=== PATIENT | male | born 1965 | race Caucasian/White ===

== ENCOUNTER → 2016-04-04 | Outpatient (CLI) | payer OTHER ==
[~2016-04-04] MED LIST: /BACL20TA OR; AMBI10TA; AMBI10TA OR; AMBIEN PO; AMIT25TA2; BACL10TA2; BACL10TA2 PO; BIOFLEX; CELE-19 PO; COLA100C2; COLA100C2 OR; EXCEDRINE MIGRAINE; EXCETAB OR; EXCETAB80 PO; FLECTOR PATCH; FLECTOR1.3 TD; GABA300T; HYDROCODONE; IMIT100T OR; IMIT50TA PO; LIDO5DIS EX; LISI10TA4; LISI10TA4 OR; LISI20TA PO; LUNE2TAB OR; LYRI150C; LYRI150C OR; LYRI200C; MAXA10TA17 PO; NEUR800T; NEUR800T OR; NORT10CA2; NORT10CA2 OR; OMEP20CA3 PO; OMEP20TA7 OR; PENN1.5S TOP; PENN1SOL2 TD; PENNSAID EXT; PERC5TAB8 PO; PREG50CA; PRIL20CA; RYZOLT; RYZOLT PO; SENN15TA2; SENO8.6T5 OR; SKEL800T5 OR; SKEL800T5 PO; SUMA100T2 PO; TIZA4CAP3 PO; TIZA4TAB PO; TRAZ50TA OR; VICO5TAB; VICO5TAB OR; VICODINES TAB OR; ZEST20TA4 PO; [UNRECOGNIZED DRUG - CODE]; [UNRECOGNIZED DRUG - OTHER] TOP; oxycontin PO; tps cream TOP
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
== END ==
LOC: M PAIN 14:40
PROVIDERS: ATTEND Anesthesiology
DX: M79.1 Myalgia (principal); M54.2 Cervicalgia; M51.16 Intervertebral disc disorders with radiculopathy, lumbar region; M51.17 Intervertebral disc disorders with radiculopathy, lumbosacral region; M46.1 Sacroiliitis, not elsewhere classified; Z79.891 Long term (current) use of opiate analgesic; Z88.8 Allergy status to other drugs, medicaments and biological substances

== ENCOUNTER → 2016-05-04 | Outpatient (CLI) | payer OTHER ==
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
== END ==
LOC: M PAIN 15:00
PROVIDERS: ATTEND Anesthesiology
DX: Z09 Encounter for follow-up examination after completed treatment for conditions other than malignant neoplasm (principal); G89.21 Chronic pain due to trauma; M79.1 Myalgia; M47.816 Spondylosis without myelopathy or radiculopathy, lumbar region; M47.817 Spondylosis without myelopathy or radiculopathy, lumbosacral region; M54.2 Cervicalgia; M51.16 Intervertebral disc disorders with radiculopathy, lumbar region; M51.17 Intervertebral disc disorders with radiculopathy, lumbosacral region; G43.909 Migraine, unspecified, not intractable, without status migrainosus; Z88.8 Allergy status to other drugs, medicaments and biological substances; Z79.891 Long term (current) use of opiate analgesic; Z79.899 Other long term (current) drug therapy

== ENCOUNTER → 2016-06-21 | Outpatient (CLI) | payer OTHER ==
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
== END ==
LOC: M PAIN 14:20
PROVIDERS: ATTEND Anesthesiology
DX: Z09 Encounter for follow-up examination after completed treatment for conditions other than malignant neoplasm (principal); G89.29 Other chronic pain; M79.1 Myalgia; M54.2 Cervicalgia; M47.816 Spondylosis without myelopathy or radiculopathy, lumbar region; M47.817 Spondylosis without myelopathy or radiculopathy, lumbosacral region; M51.16 Intervertebral disc disorders with radiculopathy, lumbar region; M51.17 Intervertebral disc disorders with radiculopathy, lumbosacral region; G43.909 Migraine, unspecified, not intractable, without status migrainosus; Z88.8 Allergy status to other drugs, medicaments and biological substances; Z79.891 Long term (current) use of opiate analgesic; Z79.899 Other long term (current) drug therapy

== ENCOUNTER → 2016-06-29 | Outpatient (CLI) | payer OTHER ==
[~2016-06-29] MED LIST changes: +BUPIVACAINE HCL 0.25% 10 ML VIAL As Ordered ONE; +BUPIVACAINE HCL 0.25% 30 ML VIAL As Ordered ONE; +TRIAMCINOLONE ACETONIDE SUSP 40 MG/ML VIAL (J3301) As Ordered ONE; +diazePAM 5 MG TAB As Ordered ONE; +oxyCODONE 5MG TAB As Ordered ONE
--- NOTE | 2016-07-08 23:12 | ECWPNPC ---
PATIENT NAME: JEROME MARIN : 1965 GENDER: MALE VISIT DATE: 06/29/2016 DISCHARGE DATE: 06/29/16 1115 VISIT LOCKED DATE TIME: PHYSICIAN: GEORGIE BEASLEY RESOURCE: GEORGIE BEASLEY REASON FOR APPOINTMENT 1. TPI NECK APPROVED W/C HISTORY OF PRESENT ILLNESS HISTORY OF PRESENT ILLNESS: PAIN THE PATIENT DESCRIBES THE PAIN... FALL RISK SCREENING: SCREENING :ONE FALL WITH INJURY IN THE PAST YEAR LEFT LEG GAVE OUT CURRENT MEDICATIONS TAKING ETODOLAC 400 MG TABLET 1 TABLET WITH FOOD ORALLY NEEDED TWICE A DAY FOR PAIN, NOTES: 06/30/15@0800 TAKING LYRICA 150 MG CAPSULE 1 CAPSULE ORALLY FOR PAIN TID MDD3, NOTES: 06/29/16@0800 TAKING NORTRIPTYLINE HCL 75 MG CAPSULE 1 CAPSULE AT BEDTIME ORALLY ONCE A DAY, NOTES: 06/28/16@2200 TAKING OXYCODONE-ACETAMINOPHEN 7.5-325 MG TABLET 1 ORALLY CODE D CHRONIC PAIN TWICE DAILY PRN FOR PAIN MDD2, NOTES: 06/29/16@0800 TAKING METHOCARBAMOL 750 MG TABLET 1 TABLET ORALLY TWICE DAILY, NOTES: 06/29/16@0800 TAKING DOC-Q-LACE 100 MG CAPSULE 1 CAPSULE NEEDED ORALLY ONCE A DAY, NOTES: 2 DAYS AGO NOT-TAKING OXYCONTIN 10 MG TABLET ER 12 HOUR ABUSE-DETERRENT 1 TABLET ORALLY ONCE DAILY MDD1 NOT-TAKING FLECTOR 1.3 % PATCH 1 PATCH TO SKIN TRANSDERMAL TWICE A DAY NEEDED TO LEFT UPPER BACK NOT-TAKING LIDODERM 5 % PATCH 1 PATCH TO INTACT SKIN REMOVE AFTER 12 HOURS EXTERNALLY ONCE A DAY, NOTES: NONE NOT-TAKING SUMATRIPTAN 100 MG TABLETS 1 CAP P.O. DIRECTED NOT-TAKING MEDICATED SKIN CREAM LOTION EXTERNALLY , NOTES: NONE NOT-TAKING LYRICA 100 MG CAPSULE 1 CAPSULE ORALLY TID, NOTES: 10-11-15 06 NOT-TAKING OMEPRAZOLE 20 MG CAPSULE DELAYED RELEASE 1 CAPSULE ORALLY ONCE A DAY DISCONTINUED CEPHALEXIN 500 MG TABLET 1 TABLET ORALLY THREE TIMES DAILY MEDICATION LIST REVIEWED AND RECONCILED WITH THE PATIENT PAST MEDICAL HISTORY LOW AND MID BACK PAIN MIGRAINE ALLERGIES MILNACIPRAN HCL: TACHYCARDIA, FLUSHING, AGITATION: ALLERGY SOCIAL HISTORY GENERAL: TOBACCO USE ARE YOU A:CURRENT SMOKER PATIENT COUNSELED ON THE DANGERS OF TOBACCO USE AND URGED TO QUIT:06/29/2016 ARE YOU INTERESTED IN QUITTING?THINKING ABOUT QUITTING COUNSELED THE PATIENT ON SMOKING CESSATION, EDUCATION [id number]/07/2017 PAIN CLINIC PFS, CLERGY, PUBLIC HEALTH REFERRALS CLERGY REFERRAL NEEDED?NO WAS THE PROVIDER NOTIFIED OF ANY PERTINENT INFO?NO PFS REFERRAL NEEDED?NO PUBLIC HEALTH REFERRAL NEEDED?NO PATIENT: ____. REVIEW OF SYSTEMS CONSTITUTIONAL: ANY CHANGE IN YOUR MEDICAL CONDITION? NO . CHILLS NO . FEVER NO . INFECTION: DO YOU HAVE NEW INFECTIONS? NO . DO YOU HAVE HISTORY OF MRSA? NO . MUSCULOSKELETAL: ANY NEW PATTERNS OF PAIN OR NUMBNESS? YES . GASTROENTEROLOGY: ANY NEW CHANGE IN BOWEL CONTROL? NO . GENITOURINARY: ANY NEW CHANGE IN BLADDER CONTROL? NO . IS THERE A CHANCE YOU COULD BE ? NO . HEMATOLOGY/LYMPH: DO YOU TAKE ANY BLOOD THINNERS? (FOR EXAMPLE- COUMADIN, PLAVIX, AGGRENOX, PLATEL, PRADAXA, OR XARELTO) NO . WHEN WAS YOUR LAST DOSE? DATE: TIME: . NEUROLOGY: HAVE YOU FALLEN IN THE PAST 6 MONTHS? NO . ANY NEW EXTREMITY NUMBNESS OR WEAKNESS? NO . CARDIOLOGY: DO YOU HAVE A PACEMAKER OR DEFIBRILLATOR? NO . RESPIRATORY: HAVE YOU BEEN SICK IN THE PAST WEEK? NO . FEVER NO . FLU LIKE SYMPTOMS? NO . COUGH NO . INTEGUMENTARY: DO YOU HAVE ANY RASHES OR OPEN SORES? NO . ALLERGIC/IMMUNO: ARE YOU ALLERGIC TO SHELLFISH OR IV DYE? NO . ANY NEW ALLERGIES? NO . PSYCHIATRIC: DO YOU HAVE THOUGHTS OF HURTING YOURSELF OR SOMEONE ELSE? NO . ARE YOU ABUSED, NEGLECTED, OR IN AN UNSAFE ENVIRONMENT? NO . ENDOCRINOLOGY: ARE YOU DIABETIC? NO . OTHER: DO YOU NEED ANY PRESCRIPTIONS? NO . IF YES, PLEASE LIST: ____ . ANY NEW PROBLEMS WITH YOUR MEDICATIONS? NO . WHEN DID YOU LAST EAT? ____0600 . WHEN DID YOU LAST DRINK? ____1200 . WHAT DID YOU LAST DRINK? ____WATER . NAME OF PERSON DRIVING YOU HOME? ____PATTY . DO YOU HAVE ANY OTHER QUESTIONS OR CONCERNS NO . REVIEWED BY: PROVIDER: . VITAL SIGNS WT 205.2 LBS, HT 68 IN, BMI 31.20 INDEX, BP 128/78 MM HG, HR 89 /MIN, RR 16 /MIN, TEMP 98.2 F, OXYGEN SAT % 99%, NA INITIALS SC 14:07, REVIEWED BY: VD. ASSESSMENTS MYALGIA - M79.1 (PRIMARY) PROCEDURES PN TRIGGER POINT INJECTION WITH STEROIDS PRE PROCEDURE DIAGNOSIS 1. MYALGIA 2. PAIN AT LEFT NECK AREA AND LEFT SHOULDER AREA POST PROCEDURE DIAGNOSIS 1. MYALGIA 2. PAIN AT LEFT NECK AREA AND LEFT SHOULDER AREA PROCEDURE TRIGGER POINT INJECTION AT LEFT NECK AREA AND LEFT SHOULDER AREA SURGEON DR. GEORGIE BEASLEY FURNITURE DUSTER NONE ANESTHESIA LOCAL PRE PROCEDURE NOTE THE PATIENT HAS A HISTORY OF CHRONIC PAIN AT THE LEFT NECK AREA AND LEFT SHOULDER AREA. I EVALUATE THE PATIENT AND REVIEWED THE CHART. THERE IS EVIDENCE OF BANDS OF TISSUE WITH RESTRICTION OF MOVEMENT AND PRESENCE OF TRIGGER POINT AT THE AFFECTED AREA. I WENT OVER THE RISKS, ALTERNATIVES, AND BENEFITS ASSOCIATED WITH THIS PROCEDURE. THE PATIENT WOULD LIKE TO PROCEED AND GIVE CONSENT TO PERFORMED THE PROCEDURE. THE PATIENT DENIES UNEXPLAINABLE WEIGHT LOSS, FEVER, CHILLS, OR NEW CHANGES IN URINARY OR BOWEL CONTROL DESCRIPTION OF PROCEDURE THE PATIENT WAS BROUGHT TO THE PROCEDURE ROOM AND PLACED IN THE SITTING POSITION. THE AREA WAS CLEANED WITH ALCOHOL. THE PROCEDURE WAS DONE USING ASEPTIC STERILE TECHNIQUE. I CHECKED LATERALITY AND THE LEVEL WHERE THE PROCEDURE WAS GOING TO BE PERFORMED WITH THE PATIENT AND THE SUPPORTING STAFF AT THE MOMENT OF THE TIME OUT IN THE PROCEDURE ROOM. USING A 25-GAUGE NEEDLE, TRIGGER POINTS WERE INJECTED AT THE LEFT NECK AREA AND LEFT SHOULDER AREA WITH A TOTAL OF 40 ML OF BUPIVACAINE 0.25% AND KENALOG 40 MG. THERE WAS NO EVIDENCE OF BLOOD, PARESTHESIA OR CEREBROSPINAL FLUID DURING THE PROCEDURE. THE PATIENT WAS SENT TO THE RECOVERY ROOM. THE PATIENT WAS MOVING THE EXTREMITIES AND DOING WELL. THERE WAS NO COMPLICATION DURING THE PROCEDURE POST PROCEDURE NOTE THE PATIENT WILL BE SEEN IN A FOLLOW UP IN THE NEXT FEW WEEKS. INSTRUCTIONS WERE GIVEN, QUESTIONS WERE ANSWERED, AND THE PATIENT EXPRESSED UNDERSTANDING AND AGREES WITH THE PLAN. I, ARNOLD GARCIA, DOCUMENTED THE ABOVE INFORMATION ACTING A SCRIBE FOR DR. BEASLEY. I HAVE REVIEWED THE ABOVE DOCUMENT, WRITTEN BY ARNOLD GARCIA SCRIBEden AND I VERIFY THAT IT IS ACCURATE. PN WORKMANS' COMP OPINION IN YOUR OPINION, WAS THE INCIDENT THAT THE PATIENT DESCRIBED THE COMPETENT MEDICAL CAUSE OF THIS INJURY/ILLNESS? YES ARE THE PATIENT'S COMPLAINTS CONSISTENT WITH HIS/HER HISTORY OF THE INJURY/ILLNESS? YES IS THE PATIENT'S HISTORY OF THE INJURY/ILLNESS CONSISTENT WITH YOUR OBJECTIVE FINDING? YES WHAT IS THE PERCENTAGE OF TEMPORARY IMPAIRMENT? MARKED = 75% IS THE PATIENT WORKING? NO DOCTOR ON SITE: GEORGIE GOODWIN MD PROCEDURE CODES 80555 INJ TRIGGER POINT 1/2 MUSCL DISPOSITION & COMMUNICATION FOLLOW UP 3 WEEKS ELECTRONICALLY SIGNED BY GEORGIE BEASLEY MD ON 07/08/2016 AT 05:48 PM EDT DISCLAIMER : THIS IS A VISIT SUMMARY EXTRACTED FROM THE [employer] CHART. IT IS NOT A COPY OF THE [employer] PROGRESS NOTE. ALIVIA
== END ==
LOC: M PAIN 14:00
PROVIDERS: ATTEND Anesthesiology
DX: G89.29 Other chronic pain (principal); M54.2 Cervicalgia; M25.512 Pain in left shoulder; M79.1 Myalgia; Z79.891 Long term (current) use of opiate analgesic; Z79.899 Other long term (current) drug therapy
CPT/HCPCS: 20552; J3301

== ENCOUNTER → 2016-07-18 | Outpatient (CLI) | payer OTHER ==
[~2016-07-18] MED LIST changes: -BUPIVACAINE HCL 0.25% 10 ML VIAL As Ordered ONE; -BUPIVACAINE HCL 0.25% 30 ML VIAL As Ordered ONE; -TRIAMCINOLONE ACETONIDE SUSP 40 MG/ML VIAL (J3301) As Ordered ONE; -diazePAM 5 MG TAB As Ordered ONE; -oxyCODONE 5MG TAB As Ordered ONE
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
== END ==
LOC: M PAIN 14:00
PROVIDERS: ATTEND Anesthesiology
DX: G89.29 Other chronic pain (principal); M51.16 Intervertebral disc disorders with radiculopathy, lumbar region; M51.17 Intervertebral disc disorders with radiculopathy, lumbosacral region; M47.816 Spondylosis without myelopathy or radiculopathy, lumbar region; M47.817 Spondylosis without myelopathy or radiculopathy, lumbosacral region; M79.1 Myalgia; Z88.8 Allergy status to other drugs, medicaments and biological substances; F17.200 Nicotine dependence, unspecified, uncomplicated; Z79.891 Long term (current) use of opiate analgesic; Z79.899 Other long term (current) drug therapy

== ENCOUNTER → 2016-08-07 | Outpatient (CLI) | payer OTHER ==
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
== END ==
LOC: M PAIN 13:40
PROVIDERS: ATTEND Anesthesiology
DX: G89.29 Other chronic pain (principal); M51.16 Intervertebral disc disorders with radiculopathy, lumbar region; M54.2 Cervicalgia; M25.561 Pain in right knee; M25.512 Pain in left shoulder; M79.1 Myalgia; G43.909 Migraine, unspecified, not intractable, without status migrainosus; F17.210 Nicotine dependence, cigarettes, uncomplicated; Z88.8 Allergy status to other drugs, medicaments and biological substances; Z79.891 Long term (current) use of opiate analgesic; Z79.899 Other long term (current) drug therapy

== ENCOUNTER → 2016-08-27 | Outpatient (CLI) | payer OTHER ==
[~2016-08-27] MED LIST changes: +ISOVUE-M 300 61% 15ML VIAL (Q9967) As Ordered ONE; +LIDOCAINE 1% SDV INJ 30 ML VIAL As Ordered ONE; +diazePAM 5 MG TAB As Ordered ONE; +methylPREDNISolone SUSP 40 MG/ML (DEPO-medrol) VIAL (J1030) As Ordered ONE; +oxyCODONE 5MG TAB As Ordered ONE
--- NOTE | 2016-08-27 13:53 | REP ---
Partial lumbar spine series: Three views. History: Lumbar epidural injection for pain. 11 seconds of fluoroscopy time is reported. Findings: A sequence of three fluoroscopic last image hold spot radiographs are presented documenting needle position associated with lumbar epidural injection procedure. Signed by Conner Baker MD 08/27/2016 04:41 P
--- NOTE | 2016-09-02 23:53 | ECWPNPC ---
PATIENT NAME: JEROME MARIN : 1965 GENDER: MALE VISIT DATE: 08/27/2016 DISCHARGE DATE: 08/27/16 1325 VISIT LOCKED DATE TIME: PHYSICIAN: GEORGIE BEASLEY RESOURCE: GEORGIE BEASLEY REASON FOR APPOINTMENT 1. EDYTA Hancock/Thi APPROVED L4-L5 HISTORY OF PRESENT ILLNESS HISTORY OF PRESENT ILLNESS: PAIN THE PATIENT DESCRIBES THE PAIN... FALL RISK SCREENING: SCREENING :NO FALLS IN THE PAST YEAR CURRENT MEDICATIONS TAKING DULOXETINE HCL 30 MG CAPSULE DELAYED RELEASE PARTICLES 1 CAPSULE ORALLY BID FOR PAIN, NOTES: COUPLE DAYS AGO TAKING NORTRIPTYLINE HCL 75 MG CAPSULE 1 CAPSULE AT BEDTIME ORALLY ONCE A DAY, NOTES: 2099 TAKING LYRICA 150 MG CAPSULE 1 CAPSULE ORALLY FOR PAIN TID MDD3, NOTES: 08-27-16799 TAKING ETODOLAC 400 MG TABLET 1 TABLET WITH FOOD ORALLY NEEDED TWICE A DAY FOR PAIN, NOTES: 08-27-16799 TAKING OXYCODONE-ACETAMINOPHEN 7.5-325 MG TABLET 1 ORALLY CODE D CHRONIC PAIN TWICE DAILY PRN FOR PAIN MDD2, NOTES: 08-27-16799 TAKING METHOCARBAMOL 750 MG TABLET 1 TABLET ORALLY TWICE DAILY NEEDED, NOTES: 08-27-16799 TAKING DOC-Q-LACE 100 MG CAPSULE 1 CAPSULE NEEDED ORALLY ONCE A DAY, NOTES: NONE RECENT TAKING FLECTOR 1.3 % PATCH 1 PATCH TO SKIN TRANSDERMAL TWICE A DAY NEEDED TO LEFT UPPER BACK, NOTES: 2 WEEKS AGO TAKING SUMATRIPTAN 100 MG TABLETS 1 CAP P.O. DIRECTED, NOTES: NONE RECENT TAKING OMEPRAZOLE 20 MG CAPSULE DELAYED RELEASE 1 CAPSULE ORALLY ONCE A DAY, NOTES: 08-26-16 PM NOT-TAKING OXYCONTIN 10 MG TABLET ER 12 HOUR ABUSE-DETERRENT 1 TABLET ORALLY ONCE DAILY MDD1 NOT-TAKING MEDICATED SKIN CREAM LOTION EXTERNALLY , NOTES: NONE DISCONTINUED LIDODERM 5 % PATCH 1 PATCH TO INTACT SKIN REMOVE AFTER 12 HOURS EXTERNALLY ONCE A DAY, NOTES: NONE DISCONTINUED LYRICA 100 MG CAPSULE 1 CAPSULE ORALLY TID, NOTES: 10-11-15 0600 MEDICATION LIST REVIEWED AND RECONCILED WITH THE PATIENT PAST MEDICAL HISTORY LOW AND MID BACK PAIN MIGRAINE ALLERGIES MILNACIPRAN HCL: TACHYCARDIA, FLUSHING, AGITATION: ALLERGY REVIEW OF SYSTEMS CONSTITUTIONAL: ANY CHANGE IN YOUR MEDICAL CONDITION? NO . CHILLS NO . FEVER NO . INFECTION: DO YOU HAVE NEW INFECTIONS? NO . DO YOU HAVE HISTORY OF MRSA? NO . MUSCULOSKELETAL: ANY NEW PATTERNS OF PAIN OR NUMBNESS? NO . GASTROENTEROLOGY: ANY NEW CHANGE IN BOWEL CONTROL? NO . GENITOURINARY: ANY NEW CHANGE IN BLADDER CONTROL? NO . IS THERE A CHANCE YOU COULD BE ? NO . HEMATOLOGY/LYMPH: DO YOU TAKE ANY BLOOD THINNERS? (FOR EXAMPLE- COUMADIN, PLAVIX, AGGRENOX, PLATEL, PRADAXA, OR XARELTO) NO . WHEN WAS YOUR LAST DOSE? DATE: TIME: . NEUROLOGY: HAVE YOU FALLEN IN THE PAST 6 MONTHS? YES . ANY NEW EXTREMITY NUMBNESS OR WEAKNESS? NO . CARDIOLOGY: DO YOU HAVE A PACEMAKER OR DEFIBRILLATOR? NO . RESPIRATORY: HAVE YOU BEEN SICK IN THE PAST WEEK? NO . FEVER NO . FLU LIKE SYMPTOMS? NO . COUGH NO . INTEGUMENTARY: DO YOU HAVE ANY RASHES OR OPEN SORES? NO . ALLERGIC/IMMUNO: ARE YOU ALLERGIC TO SHELLFISH OR IV DYE? NO . ANY NEW ALLERGIES? NO . PSYCHIATRIC: DO YOU HAVE THOUGHTS OF HURTING YOURSELF OR SOMEONE ELSE? NO . ARE YOU ABUSED, NEGLECTED, OR IN AN UNSAFE ENVIRONMENT? NO . ENDOCRINOLOGY: ARE YOU DIABETIC? NO . OTHER: DO YOU NEED ANY PRESCRIPTIONS? NO . IF YES, PLEASE LIST: ____ . ANY NEW PROBLEMS WITH YOUR MEDICATIONS? NO . WHEN DID YOU LAST EAT? 08-26-16 PM . WHEN DID YOU LAST DRINK? 08-27-16 0800 . WHAT DID YOU LAST DRINK? WATER . NAME OF PERSON DRIVING YOU HOME? SONALI . DO YOU HAVE ANY OTHER QUESTIONS OR CONCERNS NO . REVIEWED BY: PROVIDER: . VITAL SIGNS WT 208.8 LBS, HT 68 IN, BMI 31.74 INDEX, BP 118/79 MM HG, HR 91 /MIN, RR 16 /MIN, TEMP 97.0 F, OXYGEN SAT % 98%, NA INITIALS SC 11:14, REVIEWED BY: CM. ASSESSMENTS INTERVERTEBRAL DISC DISORDERS WITH RADICULOPATHY, LUMBAR REGION - M51.16 (PRIMARY) PROCEDURES PRE PROCEDURE DIAGNOSIS LUMBAR RADICULOPATHY, LUMBAR DISC DISORDER WITH RADICULOPATHY POST PROCEDURE DIAGNOSIS LUMBAR RADICULOPATHY , LUMBAR DISC DISORDER WITH RADICULOPATHY PROCEDURE L4-L5 LUMBAR EPIDURAL STEROID INJECTION UNDER FLUOROSCOPIC GUIDANCE SURGEON DR. GEORGIE BEASLEY SPORTS UMPIRE NONE ANESTHESIA LOCAL PRE PROCEDURE NOTE THE PATIENT HAS A HISTORY OF CHRONIC LOW BACK PAIN. I EVALUATE THE PATIENT AND REVIEWED THE CHART. I WENT OVER THE RISKS, ALTERNATIVES, AND BENEFITS ASSOCIATED WITH THIS PROCEDURE. THE PATIENT WOULD LIKE TO PROCEED AND GIVE CONSENT TO PERFORMED THE PROCEDURE. THE PATIENT DENIES UNEXPLAINABLE WEIGHT LOSS, FEVER, CHILLS, OR NEW CHANGES IN URINARY OR BOWEL CONTROL. DESCRIPTION OF PROCEDURE THE PATIENT WAS BROUGHT TO THE PROCEDURE ROOM AND PLACED IN THE PRONE POSITION. THE LUMBOSACRAL AREA WAS CLEANED WITH BETADINE SOLUTION AND DRAPED ASEPTICALLY. THE PROCEDURE WAS DONE UNDER STERILE CONDITIONS. I CHECKED LATERALITY AND THE LEVEL WHERE THE PROCEDURE WAS GOING TO BE PERFORMED WITH THE PATIENT AND THE SUPPORTING STAFF AT THE MOMENT OF THE TIME OUT IN THE PROCEDURE ROOM. UNDER FLUOROSCOPIC GUIDANCE, THE TARGET POINT WAS SELECTED AT THE INTERLAMINAR LEVEL OF L4-L5. LIDOCAINE WAS USED TO NUMB THE SKIN AND THE SUBCUTANEOUS TISSUE BELOW IT. EPIDURAL TUOHY NEEDLE, 17-GAUGE, WAS ADVANCED UNDER FLUOROSCOPIC GUIDANCE AND FOLLOWING PATIENT FEEDBACK UNTIL THE EPIDURAL SPACE WAS REACHED, 7 CM DEEP INTO THE SKIN BY THE LOSS OF RESISTANCE TECHNIQUE. ISOVUE M DYE 30%, 0.25 ML, WAS INJECTED SHOWING ADEQUATE SPREAD OF THE DYE. THEN, A SOLUTION OF 3 ML OF NORMAL SALINE WITH DEPO-MEDROL 60 MG WAS INJECTED SLOWLY FOLLOWING PATIENT FEEDBACK. THERE WAS NO EVIDENCE OF BLOOD, PARESTHESIA OR CEREBROSPINAL FLUID DURING THE PROCEDURE. THE PATIENT WAS SENT TO THE RECOVERY ROOM. THE PATIENT WAS MOVING THE EXTREMITIES AND DOING WELL. THERE WAS NO COMPLICATION DURING THE PROCEDURE. FLUOROSCOPY TIME WAS 11 SECONDS. POST PROCEDURE NOTE THE PATIENT WILL BE SEEN IN A FOLLOW UP IN THE NEXT FEW WEEKS. INSTRUCTIONS WERE GIVEN, QUESTIONS WERE ANSWERED, AND THE PATIENT EXPRESSED UNDERSTANDING AND AGREES WITH THE PLAN. I, ARNOLD GARCIA, DOCUMENTED THE ABOVE INFORMATION ACTING A SCRIBE FOR DR. BEASLEY. I HAVE REVIEWED THE ABOVE DOCUMENT, WRITTEN BY ARNOLD GARCIA SCRIBEden AND I VERIFY THAT IT IS ACCURATE PN WORKMANS' COMP OPINION IN YOUR OPINION, WAS THE INCIDENT THAT THE PATIENT DESCRIBED THE COMPETENT MEDICAL CAUSE OF THIS INJURY/ILLNESS? YES ARE THE PATIENT'S COMPLAINTS CONSISTENT WITH HIS/HER HISTORY OF THE INJURY/ILLNESS? YES IS THE PATIENT'S HISTORY OF THE INJURY/ILLNESS CONSISTENT WITH YOUR OBJECTIVE FINDING? YES WHAT IS THE PERCENTAGE OF TEMPORARY IMPAIRMENT? MARKED = 75% IS THE PATIENT WORKING? NO DOCTOR ON SITE: GEORGIE GOODWIN MD DIAGNOSTIC IMAGING [facility] FLUORO GUIDE SPINE INJECTION (PAIN)[id number] PROCEDURE CODES 14570 LUMBAR/SACRAL W/ IMAGING 6045F RADXPS IN END [id number] PXD DISPOSITION & COMMUNICATION FOLLOW UP 3 WEEKS ELECTRONICALLY SIGNED BY GEORGIE BEASLEY MD ON 09/02/2016 AT 07:33 PM EDT DISCLAIMER : THIS IS A VISIT SUMMARY EXTRACTED FROM THE [employer] CHART. IT IS NOT A COPY OF THE [employer] PROGRESS NOTE. MTDD
== END ==
LOC: M PAIN 11:00
PROVIDERS: ATTEND Anesthesiology
DX: G89.29 Other chronic pain (principal); M51.16 Intervertebral disc disorders with radiculopathy, lumbar region; G43.909 Migraine, unspecified, not intractable, without status migrainosus; Z88.8 Allergy status to other drugs, medicaments and biological substances; Z79.891 Long term (current) use of opiate analgesic; Z79.899 Other long term (current) drug therapy
CPT/HCPCS: 62323; J1030; Q9967

== ENCOUNTER → 2016-10-16 | Outpatient (CLI) | payer OTHER ==
[~2016-10-16] MED LIST changes: -CELE-19 PO; +CELE1CAP4 PO; -ISOVUE-M 300 61% 15ML VIAL (Q9967) As Ordered ONE; -LIDOCAINE 1% SDV INJ 30 ML VIAL As Ordered ONE; -diazePAM 5 MG TAB As Ordered ONE; -methylPREDNISolone SUSP 40 MG/ML (DEPO-medrol) VIAL (J1030) As Ordered ONE; -oxyCODONE 5MG TAB As Ordered ONE
--- NOTE | 2016-11-01 00:46 | ECWPNPC ---
PATIENT NAME: JEROME MARIN : 1965 GENDER: MALE VISIT DATE: 10/16/2016 DISCHARGE DATE: 10/16/16 1425 VISIT LOCKED DATE TIME: PHYSICIAN: GEORGIE BEASLEY RESOURCE: GEORGIE BEASLEY REASON FOR APPOINTMENT 1. LOW BACK PAIN HISTORY OF PRESENT ILLNESS HISTORY OF PRESENT ILLNESS: PAIN THE PATIENT DESCRIBES THE PAIN... 51 YEAR OLD MALE PATIENT WITH HISTORY OF CHRONIC NECK, LOW BACK, RIGHT KNEE, LEFT SHOULDER, AND MYOFASCIAL PAIN. PATIENT DESCRIBES THE PAIN ACHING, STABBING, AND SORE WITH A PAIN SCORE OF 3/10 PATIENT WAS INJURED IN A WORK RELATED INJURY ON 01/20/2007 WORKING FOR [employer]. 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 PATIENT RECEIVED A LUMBAR EPIDURAL ON 08/27/16 AND REPORTS HAVING OVER 50% RELIEF FROM THE INJECTION WELL INCREASED MOBILITY AND FUNCTIONALITY. PATIENT DENIES UNEXPLAINABLE WEIGHT LOSS, FEVER, CHILLS, NEW CHANGES ON HIS URINARY OR BOWEL CONTROL. FALL RISK SCREENING: SCREENING :NO FALLS IN THE PAST YEAR CURRENT MEDICATIONS TAKING DULOXETINE HCL 30 MG CAPSULE DELAYED RELEASE PARTICLES 1 CAPSULE ORALLY BID FOR PAIN TAKING NORTRIPTYLINE HCL 75 MG CAPSULE 1 CAPSULE AT BEDTIME ORALLY ONCE A DAY TAKING LYRICA 150 MG CAPSULE 1 CAPSULE ORALLY FOR PAIN TID MDD3 TAKING ETODOLAC 400 MG TABLET 1 TABLET WITH FOOD ORALLY NEEDED TWICE A DAY FOR PAIN TAKING METHOCARBAMOL 750 MG TABLET 1 TABLET ORALLY TWICE DAILY NEEDED TAKING DOC-Q-LACE 100 MG CAPSULE 1 CAPSULE NEEDED ORALLY ONCE A DAY TAKING FLECTOR 1.3 % PATCH 1 PATCH TO SKIN TRANSDERMAL TWICE A DAY NEEDED TO LEFT UPPER BACK TAKING SUMATRIPTAN 100 MG TABLETS 1 CAP P.O. DIRECTED TAKING OMEPRAZOLE 20 MG CAPSULE DELAYED RELEASE 1 CAPSULE ORALLY ONCE A DAY TAKING OXYCODONE-ACETAMINOPHEN 7.5-325 MG TABLET 1 ORALLY CODE D CHRONIC PAIN TWICE DAILY PRN FOR PAIN MDD2 NOT-TAKING OXYCONTIN 10 MG TABLET ER 12 HOUR ABUSE-DETERRENT 1 TABLET ORALLY ONCE DAILY MDD1 NOT-TAKING MEDICATED SKIN CREAM LOTION EXTERNALLY , NOTES: NONE MEDICATION LIST REVIEWED AND RECONCILED WITH THE PATIENT PAST MEDICAL HISTORY LOW AND MID BACK PAIN MIGRAINE ALLERGIES MILNACIPRAN HCL: TACHYCARDIA, FLUSHING, AGITATION: ALLERGY SURGICAL HISTORY CARPAL TUNNEL RELEASE LEFT RIGHT KNEE SURGERY LEFT ROTATOR CUFF REPAIR X2 CUBITAL SURGERY FAMILY HISTORY NO FAMILY HISTORY DOCUMENTED. SOCIAL HISTORY GENERAL: TOBACCO USE ARE YOU A:CURRENT SMOKER HOW OFTEN DO YOU SMOKE CIGARETTES?SOME DAYS, BUT NOT EVERY DAY HOW SOON AFTER YOU WAKE UP DO YOU SMOKE YOUR FIRST CIGARETTE?31-60 MIN HOW MANY CIGARETTES A DAY DO YOU SMOKE?6-10 ARE YOU INTERESTED IN QUITTING?THINKING ABOUT QUITTING PATIENT COUNSELED ON THE DANGERS OF TOBACCO USE AND URGED TO QUIT:08/07/2016 COUNSELED THE PATIENT ON SMOKING CESSATION, EDUCATION [id number]/16/2017 PAIN CLINIC PFS, CLERGY, PUBLIC HEALTH REFERRALS PFS REFERRAL NEEDED?NO CLERGY REFERRAL NEEDED?NO PUBLIC HEALTH REFERRAL NEEDED?NO WAS THE PROVIDER NOTIFIED OF ANY PERTINENT INFO?NO PATIENT: ____. HOSPITALIZATION/MAJOR DIAGNOSTIC PROCEDURE SURGERY RELATED REVIEW OF SYSTEMS REVIEWED BY: PROVIDER: GEORGIE BEASLEY MD . CONSTITUTIONAL: ANY CHANGE IN YOUR MEDICAL CONDITION? NO . CHILLS NO . FEVER NO . INFECTION: DO YOU HAVE NEW INFECTIONS? NO . DO YOU HAVE HISTORY OF MRSA? NO . MUSCULOSKELETAL: ANY NEW PATTERNS OF PAIN OR NUMBNESS? YES, PT C/O LEFT SHOULDER PAIN (EXTREME ITCHING X 1 MONTH) . GASTROENTEROLOGY: ANY NEW CHANGE IN BOWEL CONTROL? NO . GENITOURINARY: ANY NEW CHANGE IN BLADDER CONTROL? NO . IS THERE A CHANCE YOU COULD BE ? NO, NO . HEMATOLOGY/LYMPH: DO YOU TAKE ANY BLOOD THINNERS? (FOR EXAMPLE- COUMADIN, PLAVIX, AGGRENOX, PLATEL, PRADAXA, OR XARELTO) NO . WHEN WAS YOUR LAST DOSE? DATE: TIME: . NEUROLOGY: HAVE YOU FALLEN IN THE PAST 6 MONTHS? YES, PT STATES HE FELL A MONTH AGO, LEFT LEG GAVE OUT. PT DENIES SEEKING MEDICAL ASSISTANCE FOR THIS . ANY NEW EXTREMITY NUMBNESS OR WEAKNESS? NO . CARDIOLOGY: DO YOU HAVE A PACEMAKER OR DEFIBRILLATOR? NO . RESPIRATORY: HAVE YOU BEEN SICK IN THE PAST WEEK? NO . FEVER NO . FLU LIKE SYMPTOMS? NO . COUGH NO . INTEGUMENTARY: DO YOU HAVE ANY RASHES OR OPEN SORES? NO . ALLERGIC/IMMUNO: ARE YOU ALLERGIC TO SHELLFISH OR IV DYE? NO . ANY NEW ALLERGIES? NO . PSYCHIATRIC: DO YOU HAVE THOUGHTS OF HURTING YOURSELF OR SOMEONE ELSE? NO . ARE YOU ABUSED, NEGLECTED, OR IN AN UNSAFE ENVIRONMENT? NO . ENDOCRINOLOGY: ARE YOU DIABETIC? NO . OTHER: DO YOU NEED ANY PRESCRIPTIONS? YES, ETODOLAC, OXYCODONE . IF YES, PLEASE LIST: ____ . ANY NEW PROBLEMS WITH YOUR MEDICATIONS? NO . WHEN DID YOU LAST EAT? ____ . WHEN DID YOU LAST DRINK? ____ . WHAT DID YOU LAST DRINK? ____ . NAME OF PERSON DRIVING YOU HOME? ____ . DO YOU HAVE ANY OTHER QUESTIONS OR CONCERNS NO . VITAL SIGNS WT 207.8 LBS, HT 68 IN, BMI 31.59 INDEX, BP 142/83 MM HG, HR 100 /MIN, RR 16 /MIN, TEMP 97.9 F, OXYGEN SAT % 96%, SAFE IN ENV? (Y/N) Y, NA INITIALS TL 1330, REVIEWED BY: BREANN. EXAMINATION : PATIENT IS ALERT O X 3 AND COOPERATIVE. PATIENT HAS DIFFICULTIES STANDING UP FOR THE EXAMINATION. PATIENT AMBULATES WITH AN ANTALGIC GAIT. THERE IS TENDERNESS IN THE LOW BACK PARASPINAL MUSCLE GROUP. MRI OF THE LUMBAR SPINE DONE ON 06/30/14 SHOWS DISC BULGES AT L2-L3, L3-L4, AND L4-L5, A DISC PROTRUSION AT L5-S1, CANAL STENOSIS, AND FACET HYPERTROPHY. 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 MARIN'S PAIN MANAGEMENT CASE. PATIENT WILL RECEIVED A REFILL OF NORTRIPTYLINE, LYRICA, ETODOLAC, OXYCODONE, METHOCARBAMOL, AND DULOXETINE TODAY. PATIENT WILL RECEIVE METHOCARBAMOL FOR THE MUSCLE SPASMS AND EXTREME SPASTICITY, OXYCODONE FOR THE SOMATIC PAIN, NORTRIPTYLINE, DULOXETINE, AND LYRICA FOR THE NEUROPATHIC PAIN, AND ETODOLAC FOR THE ARTHRITIS. PATIENT STATES THAT THE MEDICATIONS KEEP HIM MOBILE AND FUNCTIONAL. PATIENT BROUGHT HIS MEDICATION ON TODAY'S VISIT. PATIENT DENIES ABUSE OF ANY MEDICATION, DENIES USE OF ILLEGAL SUBSTANCES, AND STATES HE IS ONLY USING THE MEDICATION FOR TIME MANAGEMENT. URINE TOXICOLOGY REPORT DONE ON 08/10/16 SHOWS CONSISTENT RESULTS WIT THE PATIENTS MEDICATION LIST. PATIENT RECEIVED A LUMBAR EPIDURAL ON 08/27/16 AND REPORTS HAVING OVER 50% RELIEF FROM THE INJECTION WITH INCREASED MOBILITY AND FUNCTIONALITY. PATIENT REPORTS HE IS ABLE TO DECREASE HIS MEDICATION WHEN HE HAS THE PAIN RELIEF FROM THE INTERVENTIONS. PATIENT WILL RETURN TO THE CLINIC IN 2 MONTHS. INSTRUCTIONS WERE GIVEN, QUESTIONS WERE ANSWERED, PATIENT REPORTS UNDERSTANDING AND AGREES WITH THE PLAN. I, MARINA VEGA, DOCUMENTED THE ABOVE INFORMATION ACTING A SCRIBE FOR DR. BEASLEY. I HAVE REVIEWED THE ABOVE DOCUMENT, WRITTEN BY MARINA MADRIGAL AND I VERIFY THAT IT IS ACCURATE. INTERVERTEBRAL DISC DISORDERS WITH RADICULOPATHY, LUMBAR REGION REFILL NORTRIPTYLINE HCL CAPSULE, 75 MG, 1 CAPSULE AT BEDTIME, ORALLY, ONCE A DAY, 30 DAY(S), 30 CAPSULE, REFILLS 2 REFILL LYRICA CAPSULE, 150 MG, 1 CAPSULE, ORALLY FOR PAIN, TID MDD3, 30 DAY(S), 90, REFILLS 2 REFILL ETODOLAC TABLET, 400 MG, 1 TABLET WITH FOOD, ORALLY NEEDED, TWICE A DAY FOR PAIN, 30 DAY(S), 50, REFILLS 1 REFILL METHOCARBAMOL TABLET, 750 MG, 1 TABLET, ORALLY, TWICE DAILY NEEDED, 30 DAY(S), 50, REFILLS 1 REFILL OXYCODONE-ACETAMINOPHEN TABLET, 7.5-325 MG, 1, ORALLY CODE D CHRONIC PAIN, TWICE DAILY PRN FOR PAIN MDD2, 30 DAY(S), 60, REFILLS 0 OTHERS REFILL DULOXETINE HCL CAPSULE DELAYED RELEASE PARTICLES, 30 MG, 1 CAPSULE, ORALLY, BID FOR PAIN, 30 DAY(S), 60, REFILLS 2 PROCEDURE CODES FA211 ESTABILISHED PATIENT [facility] FACILITY CHARGE G8427 DOC MEDS VERIFIED W/PT OR RE G7244 PAIN ASSESS POS TOOL F/U PLAN DOC DISPOSITION & COMMUNICATION FOLLOW UP 2 MONTHS ELECTRONICALLY SIGNED BY GEORGIE BEASLEY MD ON 10/30/2016 AT 11:14 PM EDT DISCLAIMER : THIS IS A VISIT SUMMARY EXTRACTED FROM THE [employer] CHART. IT IS NOT A COPY OF THE [employer] PROGRESS NOTE. MTDD
== END ==
LOC: M PAIN 13:20
PROVIDERS: ATTEND Anesthesiology
DX: G89.29 Other chronic pain (principal); M51.16 Intervertebral disc disorders with radiculopathy, lumbar region; M47.816 Spondylosis without myelopathy or radiculopathy, lumbar region; M47.817 Spondylosis without myelopathy or radiculopathy, lumbosacral region; M51.17 Intervertebral disc disorders with radiculopathy, lumbosacral region; M79.1 Myalgia; G43.909 Migraine, unspecified, not intractable, without status migrainosus; F17.210 Nicotine dependence, cigarettes, uncomplicated; Z88.8 Allergy status to other drugs, medicaments and biological substances; Z79.891 Long term (current) use of opiate analgesic; Z79.899 Other long term (current) drug therapy

== ENCOUNTER → 2016-12-14 | Outpatient (CLI) | payer SELFPAY ==
--- NOTE | 2016-12-30 02:27 | ECWPNPC ---
PATIENT NAME: JEROME MARIN : 1965 GENDER: MALE VISIT DATE: 12/14/2016 DISCHARGE DATE: 12/14/16 1457 VISIT LOCKED DATE TIME: PHYSICIAN: GEORGIE BEASLEY RESOURCE: GEORGIE BEASLEY REASON FOR APPOINTMENT 1. LOW BACK PAIN HISTORY OF PRESENT ILLNESS HISTORY OF PRESENT ILLNESS: PAIN THE PATIENT DESCRIBES THE PAIN... 51 YEAR OLD MALE PATIENT WITH HISTORY OF CHRONIC NECK, LOW BACK, RIGHT KNEE, LEFT SHOULDER, AND MYOFASCIAL PAIN. PATIENT DESCRIBES THE PAIN ACHING, STABBING, AND SORE WITH A PAIN SCORE OF 7/10. PATIENT RECEIVED A LUMBAR EPIDURAL ON 08/27/16 AND REPORTS HAVING OVER 50% RELIEF FROM THE INJECTION WELL INCREASED MOBILITY AND FUNCTIONALITY BUT REPORTS THE PAIN IS STARTING TO RETURN AT THIS TIME. PATIENT DENIES UNEXPLAINABLE WEIGHT LOSS, FEVER, CHILLS, NEW CHANGES ON HIS URINARY OR BOWEL CONTROL. FALL RISK SCREENING: SCREENING :NO FALLS IN THE PAST YEAR CURRENT MEDICATIONS TAKING DOC-Q-LACE 100 MG CAPSULE 1 CAPSULE NEEDED ORALLY ONCE A DAY TAKING FLECTOR 1.3 % PATCH 1 PATCH TO SKIN TRANSDERMAL TWICE A DAY NEEDED TO LEFT UPPER BACK TAKING SUMATRIPTAN 100 MG TABLETS 1 CAP P.O. DIRECTED TAKING OMEPRAZOLE 20 MG CAPSULE DELAYED RELEASE 1 CAPSULE ORALLY ONCE A DAY TAKING NORTRIPTYLINE HCL 75 MG CAPSULE 1 CAPSULE AT BEDTIME ORALLY ONCE A DAY TAKING LYRICA 150 MG CAPSULE 1 CAPSULE ORALLY FOR PAIN TID MDD3 TAKING ETODOLAC 400 MG TABLET 1 TABLET WITH FOOD ORALLY NEEDED TWICE A DAY FOR PAIN TAKING METHOCARBAMOL 750 MG TABLET 1 TABLET ORALLY TWICE DAILY NEEDED TAKING OXYCODONE-ACETAMINOPHEN 7.5-325 MG TABLET 1 ORALLY CODE D CHRONIC PAIN TWICE DAILY PRN FOR PAIN MDD2 TAKING DULOXETINE HCL 30 MG CAPSULE DELAYED RELEASE PARTICLES 1 CAPSULE ORALLY BID FOR PAIN TAKING AMOXICILLIN 875 MG TABLET 1 TABLET ORALLY EVERY 12 HRS NOT-TAKING OXYCONTIN 10 MG TABLET ER 12 HOUR ABUSE-DETERRENT 1 TABLET ORALLY ONCE DAILY MDD1 NOT-TAKING MEDICATED SKIN CREAM LOTION EXTERNALLY , NOTES: NONE MEDICATION LIST REVIEWED AND RECONCILED WITH THE PATIENT PAST MEDICAL HISTORY LOW AND MID BACK PAIN MIGRAINE ALLERGIES MILNACIPRAN HCL: TACHYCARDIA, FLUSHING, AGITATION: ALLERGY SURGICAL HISTORY CARPAL TUNNEL RELEASE LEFT RIGHT KNEE SURGERY LEFT ROTATOR CUFF REPAIR X2 CUBITAL SURGERY SOCIAL HISTORY GENERAL: TOBACCO USE ARE YOU A:CURRENT SMOKER HOW OFTEN DO YOU SMOKE CIGARETTES?SOME DAYS, BUT NOT EVERY DAY HOW SOON AFTER YOU WAKE UP DO YOU SMOKE YOUR FIRST CIGARETTE?31-60 MIN HOW MANY CIGARETTES A DAY DO YOU SMOKE?6-10 ARE YOU INTERESTED IN QUITTING?THINKING ABOUT QUITTING PATIENT COUNSELED ON THE DANGERS OF TOBACCO USE AND URGED TO QUIT:08/07/2016 COUNSELED THE PATIENT ON SMOKING CESSATION, EDUCATION [id number]/16/2017 PAIN CLINIC PFS, CLERGY, PUBLIC HEALTH REFERRALS PFS REFERRAL NEEDED?NO CLERGY REFERRAL NEEDED?NO PUBLIC HEALTH REFERRAL NEEDED?NO WAS THE PROVIDER NOTIFIED OF ANY PERTINENT INFO?NO HAS THE PATIENT BEEN EDUCATED REGARDING HIS/HER PLAN OF CARE?YES HAS THE PATIENT BEEN EDUCATED REGARDING PAIN, THE RISK FOR PAIN, THE IMPORTANCE OF EFFECTIVE PAIN MANAGEMENT, AND THE PAIN ASSESSMENT PROCESS?YES PATIENT: ____. HOSPITALIZATION/MAJOR DIAGNOSTIC PROCEDURE SURGERY RELATED REVIEW OF SYSTEMS REVIEWED BY: PROVIDER: GEORGIE BEASLEY MD . CONSTITUTIONAL: ANY CHANGE IN YOUR MEDICAL CONDITION? NO . CHILLS NO . FEVER NO . INFECTION: DO YOU HAVE NEW INFECTIONS? NO . DO YOU HAVE HISTORY OF MRSA? NO . MUSCULOSKELETAL: ANY NEW PATTERNS OF PAIN OR NUMBNESS? NO . GASTROENTEROLOGY: ANY NEW CHANGE IN BOWEL CONTROL? NO . GENITOURINARY: ANY NEW CHANGE IN BLADDER CONTROL? NO . IS THERE A CHANCE YOU COULD BE ? NO . HEMATOLOGY/LYMPH: DO YOU TAKE ANY BLOOD THINNERS? (FOR EXAMPLE- COUMADIN, PLAVIX, AGGRENOX, PLATEL, PRADAXA, OR XARELTO) NO . WHEN WAS YOUR LAST DOSE? DATE: TIME: . NEUROLOGY: HAVE YOU FALLEN IN THE PAST 6 MONTHS? YES, PT STATES HE FALLS ALL THE TIME FOR LOSS OF BALANCE, PAIN AND WEAKNESS. PT STATES HE ALWAYS FALLS ON LEFT SIDE, PT DENIES MAJOR INJURIES OR SEEKING MEDICAL ATTENTION . ANY NEW EXTREMITY NUMBNESS OR WEAKNESS? NO . CARDIOLOGY: DO YOU HAVE A PACEMAKER OR DEFIBRILLATOR? NO . RESPIRATORY: HAVE YOU BEEN SICK IN THE PAST WEEK? NO . FEVER NO . FLU LIKE SYMPTOMS? NO . COUGH NO . INTEGUMENTARY: DO YOU HAVE ANY RASHES OR OPEN SORES? NO . ALLERGIC/IMMUNO: ARE YOU ALLERGIC TO SHELLFISH OR IV DYE? NO . ANY NEW ALLERGIES? NO . PSYCHIATRIC: DO YOU HAVE THOUGHTS OF HURTING YOURSELF OR SOMEONE ELSE? NO . ARE YOU ABUSED, NEGLECTED, OR IN AN UNSAFE ENVIRONMENT? NO . ENDOCRINOLOGY: ARE YOU DIABETIC? NO . OTHER: DO YOU NEED ANY PRESCRIPTIONS? NO . IF YES, PLEASE LIST: ____ . ANY NEW PROBLEMS WITH YOUR MEDICATIONS? NO . WHEN DID YOU LAST EAT? ____ . WHEN DID YOU LAST DRINK? ____ . WHAT DID YOU LAST DRINK? ____ . NAME OF PERSON DRIVING YOU HOME? ____ . DO YOU HAVE ANY OTHER QUESTIONS OR CONCERNS NO . VITAL SIGNS WT 205 LBS, HT 68 IN, BMI 31.17 INDEX, BP 142/85 MM HG, HR 102 /MIN, RR 16 /MIN, TEMP 97.9 F, OXYGEN SAT % 98, REVIEWED BY: EM. EXAMINATION : PATIENT IS ALERT O X 3 AND COOPERATIVE. PATIENT HAS DIFFICULTIES STANDING UP FOR THE EXAMINATION. PATIENT AMBULATES WITH AN ANTALGIC GAIT. THERE IS TENDERNESS IN THE LOW BACK PARASPINAL MUSCLE GROUP. MRI OF THE LUMBAR SPINE DONE ON 06/30/14 SHOWS DISC BULGES AT L2-L3, L3-L4, AND L4-L5, A DISC PROTRUSION AT L5-S1, CANAL STENOSIS, AND FACET HYPERTROPHY. 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 MARIN'S PAIN MANAGEMENT CASE. PATIENT WILL RECEIVED A REFILL OF NORTRIPTYLINE, LYRICA, ETODOLAC, OXYCODONE, METHOCARBAMOL, AND DULOXETINE TODAY. PATIENT WILL RECEIVE METHOCARBAMOL FOR THE MUSCLE SPASMS AND EXTREME SPASTICITY, OXYCODONE FOR THE SOMATIC PAIN, NORTRIPTYLINE, DULOXETINE, AND LYRICA FOR THE NEUROPATHIC PAIN, AND ETODOLAC FOR THE ARTHRITIS. I WOULD LIKE THE PATIENT TO START TIZANIDINE TO AID AT NIGHT FOR MUSCLE SPASMS. PATIENT STATES THAT THE MEDICATIONS KEEP HIM MOBILE AND FUNCTIONAL. PATIENT BROUGHT HIS MEDICATION ON TODAY'S VISIT. PATIENT DENIES ABUSE OF ANY MEDICATION, DENIES USE OF ILLEGAL SUBSTANCES, AND STATES HE IS ONLY USING THE MEDICATION FOR TIME MANAGEMENT. URINE TOXICOLOGY REPORT DONE ON 08/10/16 SHOWS CONSISTENT RESULTS WITH THE PATIENTS MEDICATION LIST. AT THIS TIME THE PATIENT IS A GOOD CANDIDATE FOR A LUMBAR FACET BLOCK. PATIENT REPORTS THAT HE CAN HOLD ON INTERVENTIONS AT THIS TIME SO THE PATIENT WILL RETURNED TO THE CLINIC IN 2 MONTHS TO FURTHER DISCUSS INTERVENTIONS. INSTRUCTIONS WERE GIVEN, QUESTIONS WERE ANSWERED, PATIENT REPORTS UNDERSTANDING AND AGREES WITH THE PLAN. I, MARINA VEGA, DOCUMENTED THE ABOVE INFORMATION ACTING A SCRIBE FOR DR. BEASLEY. I HAVE REVIEWED THE ABOVE DOCUMENT, WRITTEN BY MARINA MADRIGAL AND I VERIFY THAT IT IS ACCURATE. INTERVERTEBRAL DISC DISORDERS WITH RADICULOPATHY, LUMBAR REGION REFILL OXYCODONE-ACETAMINOPHEN TABLET, 7.5-325 MG, 1, ORALLY CODE D CHRONIC PAIN, TWICE DAILY PRN FOR PAIN MDD2, 30 DAYS, 60, REFILLS 0 CONTINUE LYRICA CAPSULE, 150 MG, 1 CAPSULE, ORALLY FOR PAIN, TID MDD3, 30 DAYS, 90, REFILLS 0 REFILL NORTRIPTYLINE HCL CAPSULE, 75 MG, 1 CAPSULE AT BEDTIME, ORALLY, ONCE A DAY, 30 DAYS, 30, REFILLS 2 REFILL ETODOLAC TABLET, 400 MG, 1 TABLET WITH FOOD, ORALLY NEEDED, TWICE A DAY FOR PAIN, 30 DAYS, 50, REFILLS 2 REFILL METHOCARBAMOL TABLET, 750 MG, 1 TABLET, ORALLY, TWICE DAILY NEEDED, 30 DAYS, 60, REFILLS 2 OTHERS REFILL DULOXETINE HCL CAPSULE DELAYED RELEASE PARTICLES, 30 MG, 1 CAPSULE, ORALLY, BID FOR PAIN, 30 DAYS, 60, REFILLS 2 START TIZANIDINE HCL TABLET, 2 MG, 1 TABLET NEEDED, ORALLY FOR SPSMS AND PAIN, BEFORE BEDTIME MAY REPEAT IN 4 HRS MDD2, 30 DAYS, 55, REFILLS 2 PROCEDURE CODES FA211 ESTABILISHED PATIENT [facility] FACILITY CHARGE G8427 DOC MEDS VERIFIED W/PT OR RE G7826 PAIN ASSESS POS TOOL F/U PLAN DOC DISPOSITION & COMMUNICATION FOLLOW UP 3 WEEKS ELECTRONICALLY SIGNED BY GEORGIE BEASLEY MD ON 12/24/2016 AT 01:45 PM EDT ADDENDUM: 12/24/2016 01:47 PM GEORGIE BEASLEY > PN [employer]' COMP OPINION: IN YOUR OPINION, WAS THE INCIDENT THAT THE PATIENT DESCRIBED THE COMPETENT MEDICAL CAUSE OF THIS INJURY/ILLNESS? YES ARE THE PATIENT'S COMPLAINTS CONSISTENT WITH HIS/HER HISTORY OF THE INJURY/ILLNESS? YES IS THE PATIENT'S HISTORY OF THE INJURY/ILLNESS CONSISTENT WITH YOUR OBJECTIVE FINDING? YES WHAT IS THE PERCENTAGE OF TEMPORARY IMPAIRMENT? MODARATE TO MARKED = 66.67% IS THE PATIENT WORKING? NO DOCTOR ON SITE: GEORGIE GOODWIN MD. DISCLAIMER : THIS IS A VISIT SUMMARY EXTRACTED FROM THE [facility] CHART. IT IS NOT A COPY OF THE [facility] PROGRESS NOTE. ALIVIA
== END ==
LOC: M PAIN 14:00
PROVIDERS: ATTEND Anesthesiology
DX: G89.29 Other chronic pain (principal); M47.816 Spondylosis without myelopathy or radiculopathy, lumbar region; M51.16 Intervertebral disc disorders with radiculopathy, lumbar region; M47.817 Spondylosis without myelopathy or radiculopathy, lumbosacral region; G43.909 Migraine, unspecified, not intractable, without status migrainosus; F17.210 Nicotine dependence, cigarettes, uncomplicated; Z88.8 Allergy status to other drugs, medicaments and biological substances; Z79.891 Long term (current) use of opiate analgesic; Z79.899 Other long term (current) drug therapy; Z91.81 History of falling

== ENCOUNTER → 2017-02-22 | Outpatient (CLI) | payer SELFPAY ==
--- NOTE | 2017-03-15 01:40 | ECWPNPC ---
PATIENT NAME: JEROME MARIN : 1965 GENDER: MALE VISIT DATE: 02/22/2017 DISCHARGE DATE: 02/22/17 1135 VISIT LOCKED DATE TIME: PHYSICIAN: NEHA EDDY RESOURCE: NEHA EDDY REASON FOR APPOINTMENT 1. SELF PAY LOW BACK HISTORY OF PRESENT ILLNESS HISTORY OF PRESENT ILLNESS: PAIN THE PATIENT DESCRIBES THE PAIN... THE PATIENT DESCRIBES THE PAIN... THE PATIENT DESCRIBES THE PAIN... THE PATIENT DESCRIBES THE PAIN... THE PATIENT DESCRIBES THE PAIN... THE PATIENT DESCRIBES THE PAIN... HERE FOR F/U AND MANAGEMENT OF PERSISTENT LEFT SIDED BODY PAIN. RATING PAIN VAS 7/10. DESCRIBES PAIN CONSTANT BURNING AND ACHING. CURRENTLY USING TIZANIDINE 2MG BID.THIS WAS STARTED 2MOS. AGO AND ROBAXIN 750MG TID WAS STOPPED.STATES TIZANIDINE ISNT HELPING.COMPLAINING O INCREASE IN GENERALIZED JOINT PAIN ECSPECIALLY IN SHOULDERS.CONTINUES ON ETODOLAC 400MG BID,PERCOCET 7.5MG BID ,NORTRIPTYLINE 50MG AT NIGHT AND LYRICA 150MG TID FOR CHRONIC PAIN . THESE MEDICATIONS ARE BEING PRESCRIBED FOR WORK RELATED INJURY 01-20-07. REPORTS THAT THESE MEDICATIONS ARE NOT HELPFUL AT REDUCING PAIN AND KEEPING HIM FUNCTIONAL. DENIES ADVERSE EFFECTS WITH MEDICATION. FALL RISK SCREENING: SCREENING :NO FALLS IN THE PAST YEAR CURRENT MEDICATIONS TAKING DOC-Q-LACE 100 MG CAPSULE 1 CAPSULE NEEDED ORALLY ONCE A DAY TAKING FLECTOR 1.3 % PATCH 1 PATCH TO SKIN TRANSDERMAL TWICE A DAY NEEDED TO LEFT UPPER BACK TAKING OMEPRAZOLE 20 MG CAPSULE DELAYED RELEASE 1 CAPSULE ORALLY ONCE A DAY TAKING ETODOLAC 400 MG TABLET 1 TABLET WITH FOOD ORALLY NEEDED TWICE A DAY FOR PAIN TAKING TIZANIDINE HCL 2 MG TABLET 1 TABLET NEEDED ORALLY FOR SPSMS AND PAIN BEFORE BEDTIME MAY REPEAT IN 4 HRS MDD2 TAKING OXYCODONE-ACETAMINOPHEN 7.5-325 MG TABLET 1 ORALLY CODE D CHRONIC PAIN TWICE DAILY PRN FOR PAIN MDD2 TAKING NORTRIPTYLINE HCL 75 MG CAPSULE 1 CAPSULE AT BEDTIME ORALLY ONCE A DAY TAKING LYRICA 150 MG CAPSULE 1 CAPSULE ORALLY FOR PAIN TID MDD3 NOT-TAKING METHOCARBAMOL 750 MG TABLET 1 TABLET ORALLY TWICE DAILY NEEDED NOT-TAKING SUMATRIPTAN 100 MG TABLETS 1 CAP P.O. DIRECTED NOT-TAKING AMOXICILLIN 875 MG TABLET 1 TABLET ORALLY EVERY 12 HRS NOT-TAKING DULOXETINE HCL 30 MG CAPSULE DELAYED RELEASE PARTICLES 1 CAPSULE ORALLY BID FOR PAIN NOT-TAKING OXYCONTIN 10 MG TABLET ER 12 HOUR ABUSE-DETERRENT 1 TABLET ORALLY ONCE DAILY MDD1 NOT-TAKING MEDICATED SKIN CREAM LOTION EXTERNALLY , NOTES: NONE MEDICATION LIST REVIEWED AND RECONCILED WITH THE PATIENT PAST MEDICAL HISTORY LOW AND MID BACK PAIN MIGRAINE ALLERGIES MILNACIPRAN HCL: TACHYCARDIA, FLUSHING, AGITATION: ALLERGY SURGICAL HISTORY CARPAL TUNNEL RELEASE LEFT RIGHT KNEE SURGERY LEFT ROTATOR CUFF REPAIR X2 CUBITAL SURGERY SOCIAL HISTORY GENERAL: TOBACCO USE ARE YOU A:CURRENT SMOKER ARE YOU INTERESTED IN QUITTING?THINKING ABOUT QUITTING COUNSELED THE PATIENT ON SMOKING CESSATION, EDUCATION [id number]/01/2017 HOW MANY CIGARETTES A DAY DO YOU SMOKE?6-10 HOW SOON AFTER YOU WAKE UP DO YOU SMOKE YOUR FIRST CIGARETTE?31-60 MIN HOW OFTEN DO YOU SMOKE CIGARETTES?SOME DAYS, BUT NOT EVERY DAY PATIENT COUNSELED ON THE DANGERS OF TOBACCO USE AND URGED TO QUIT:02/22/2017 PAIN CLINIC PFS, CLERGY, PUBLIC HEALTH REFERRALS PFS REFERRAL NEEDED?NO CLERGY REFERRAL NEEDED?NO PUBLIC HEALTH REFERRAL NEEDED?NO WAS THE PROVIDER NOTIFIED OF ANY PERTINENT INFO?NO HAS THE PATIENT BEEN EDUCATED REGARDING HIS/HER PLAN OF CARE?YES HAS THE PATIENT BEEN EDUCATED REGARDING PAIN, THE RISK FOR PAIN, THE IMPORTANCE OF EFFECTIVE PAIN MANAGEMENT, AND THE PAIN ASSESSMENT PROCESS?YES PATIENT: ____. HOSPITALIZATION/MAJOR DIAGNOSTIC PROCEDURE SURGERY RELATED REVIEW OF SYSTEMS REVIEWED BY: PROVIDER: NEHA WOODARD . CONSTITUTIONAL: ANY CHANGE IN YOUR MEDICAL CONDITION? NO . CHILLS NO . FEVER NO . INFECTION: DO YOU HAVE NEW INFECTIONS? NO . DO YOU HAVE HISTORY OF MRSA? NO . MUSCULOSKELETAL: ANY NEW PATTERNS OF PAIN OR NUMBNESS? YES, BILAT ARM PAIN . GASTROENTEROLOGY: ANY NEW CHANGE IN BOWEL CONTROL? NO . GENITOURINARY: ANY NEW CHANGE IN BLADDER CONTROL? NO . IS THERE A CHANCE YOU COULD BE ? NO . HEMATOLOGY/LYMPH: DO YOU TAKE ANY BLOOD THINNERS? (FOR EXAMPLE- COUMADIN, PLAVIX, AGGRENOX, PLATEL, PRADAXA, OR XARELTO) NO . WHEN WAS YOUR LAST DOSE? DATE: TIME: . NEUROLOGY: HAVE YOU FALLEN IN THE PAST 6 MONTHS? NO . ANY NEW EXTREMITY NUMBNESS OR WEAKNESS? NO . CARDIOLOGY: DO YOU HAVE A PACEMAKER OR DEFIBRILLATOR? NO . RESPIRATORY: HAVE YOU BEEN SICK IN THE PAST WEEK? NO . FEVER NO . FLU LIKE SYMPTOMS? NO . COUGH NO . INTEGUMENTARY: DO YOU HAVE ANY RASHES OR OPEN SORES? NO . ALLERGIC/IMMUNO: ARE YOU ALLERGIC TO SHELLFISH OR IV DYE? NO . ANY NEW ALLERGIES? NO . PSYCHIATRIC: DO YOU HAVE THOUGHTS OF HURTING YOURSELF OR SOMEONE ELSE? NO . ARE YOU ABUSED, NEGLECTED, OR IN AN UNSAFE ENVIRONMENT? NO . ENDOCRINOLOGY: ARE YOU DIABETIC? NO . OTHER: DO YOU NEED ANY PRESCRIPTIONS? NO . IF YES, PLEASE LIST: ____ . ANY NEW PROBLEMS WITH YOUR MEDICATIONS? NO . WHEN DID YOU LAST EAT? ____ . WHEN DID YOU LAST DRINK? ____ . WHAT DID YOU LAST DRINK? ____ . NAME OF PERSON DRIVING YOU HOME? ____ . DO YOU HAVE ANY OTHER QUESTIONS OR CONCERNS NO . VITAL SIGNS WT 200 LBS, HT 68 IN, BMI 30.41 INDEX, BP 121/74 MM HG, HR 89 /MIN, RR 18 /MIN, TEMP 98.1 F, OXYGEN SAT % 97%, NA INITIALS SC 10:08, REVIEWED BY: BREANN. EXAMINATION GENERAL EXAMINATION: LUNGS:LUNG SOUNDS ARE CLEAR. HEART:HEART RATE REGULAR. MUSCULOSKELETAL:*, MUSCLE STRENGTH TESTING 3/5 LLE/4/5 RLE, PALPATION: POSITIVE FOR PAIN OVER L/S SPINE. POSITIVE FOR PAIN OVER L/S PARSPINALS, TRIGGER POINTS:, ELICITED WITH PALPATION OVER CERVICAL SPINOUS PROCESSES AND ACROSS THE TRAPEZIUS MUSCLES BILATERALLY. RESTRICTION OF ROM IS NOTED. . DIAGNOSTIC: . ASSESSMENTS INTERVERTEBRAL DISC DISORDERS WITH RADICULOPATHY, LUMBAR REGION - M51.16 (PRIMARY) CERVICALGIA - M54.2 TREATMENT INTERVERTEBRAL DISC DISORDERS WITH RADICULOPATHY, LUMBAR REGION CONTINUE DOC-Q-LACE CAPSULE, 100 MG, 1 CAPSULE NEEDED, ORALLY, ONCE A DAY CONTINUE FLECTOR PATCH, 1.3 %, 1 PATCH TO SKIN, TRANSDERMAL, TWICE A DAY NEEDED TO LEFT UPPER BACK CONTINUE ETODOLAC TABLET, 400 MG, 1 TABLET WITH FOOD, ORALLY NEEDED, TWICE A DAY FOR PAIN REFILL METHOCARBAMOL TABLET, 750 MG, 1 TABLET, ORALLY, TWICE DAILY NEEDED, 30 DAYS, 60, REFILLS 2 STOP TIZANIDINE HCL TABLET, 2 MG, 1 TABLET NEEDED, ORALLY FOR SPSMS AND PAIN, BEFORE BEDTIME MAY REPEAT IN 4 HRS MDD2 STOP OXYCODONE-ACETAMINOPHEN TABLET, 7.5-325 MG, 1, ORALLY CODE D CHRONIC PAIN, TWICE DAILY PRN FOR PAIN MDD2 CONTINUE NORTRIPTYLINE HCL CAPSULE, 75 MG, 1 CAPSULE AT BEDTIME, ORALLY, ONCE A DAY START NORCO TABLET, 10-325 MG, 1 TAB, ORALLY, Q8H PRN MDD 3 #45 TAB SHOULD LAST 30 DAYS, 30 DAY(S), 45, REFILLS 0 NOTES: ISTOP REGISTRY REVIEWED [id number] AND DEMNOSTRATES COMPLLIANCE. BRINGS IN MEDICATIONS WHICH IS APPROPRIATE FOR WHAT WAS DISPENSED. RECENT URINE TOXICOLOGY REVIEWED. NO UNAUTHORIZED MEDICATIONS. NO ILLICIT SUBSTANCES AND PRESCRIBED MEDICATIONS WERE PRESENT. URINE TOX/UPDATE NARC AGREEMENT. PROCEDURE CODES [id number] ESTABILISHED [facility]IENT [facility] CHAR[facility] DISPOSITION & COMMUNICATION FOLLOW UP 6-8-WK ELECTRONICALLY SIGNED BY VANCE FARR ON 03/14/2017 AT 04:15 PM EST DISCLAIMER : THIS IS A VISIT SUMMARY EXTRACTED FROM THE [employer] CHART. IT IS NOT A COPY OF THE [employer] PROGRESS NOTE. ALIVIA
== END ==
LOC: M PAIN 09:30
PROVIDERS: ATTEND Nurse Practitioner Family
DX: M51.16 Intervertebral disc disorders with radiculopathy, lumbar region (principal); M54.2 Cervicalgia; F17.210 Nicotine dependence, cigarettes, uncomplicated; Z79.891 Long term (current) use of opiate analgesic; Z79.899 Other long term (current) drug therapy; Z88.8 Allergy status to other drugs, medicaments and biological substances

== ENCOUNTER → 2022-07-25 | Outpatient (CLI) | payer SELFPAY ==
[~2022-07-25] MED LIST changes: -/BACL20TA OR; +BACL1TAB9 OR; +OMEP1CAP73 PO; -OMEP20CA3 PO; +TIZA4CAP PO; -TIZA4CAP3 PO
[2022-07-25 17:23] LABS: BASO # 0.1 10^3/uL (0.0-0.2); BASO % 0.9 % (0.0-1.0); EOS # 0.2 10^3/uL (0.0-0.5); EOS % 3.2 % (0.0-3.0); HEMATOCRIT 46.7 % (42.0-52.0); HEMOGLOBIN 15.4 g/dl (13.5-17.5); LYMPH # 2.3 10^3/uL (1.5-5.0); LYMPH % 34.4 % (24.0-44.0); MEAN CORPUSCULAR HEMOGLOBIN 32.7 pg (27.0-33.0); MEAN CORPUSCULAR VOLUME 99.2 fl (80.0-96.0); MONO # 0.5 10^3/uL (0.0-0.8); MONO % 7.5 % (2.0-8.0); NEUTROPHILS # 3.5 10^3/uL (1.5-8.5); NEUTROPHILS % 53.7 % (36.0-66.0); PLATELET COUNT, AUTOMATED 275 10^3/uL (150-450); RED BLOOD COUNT 4.71 10^6/uL (4.30-6.10); WHITE BLOOD COUNT 6.6 10^3/uL (4.0-10.0)
[2022-07-25 17:52] LABS: C REACTIVE PROTEIN QUANTITATIV < 0.40 MG/DL (<1.0)
[2022-07-25 17:53] LABS: RHEUMATOID FACTOR QUANT 4.5 IU/ML (<14)
[2022-07-25 18:51] LABS: ERYTHROCYTE SEDIMENTATION RATE 11 mm/hr (0-20)
[2022-07-27 13:07] LABS: ANTINUCLEAR ANTIBODIES DIRECT Negative (Negative)
== END ==
LOC: M PLALAB 15:07
PROVIDERS: ATTEND Physician Assistant
DX: M17.11 Unilateral primary osteoarthritis, right knee (principal); M25.561 Pain in right knee

== ENCOUNTER → 2023-04-03 | Outpatient (CLI) | payer MEDICARE | LOC: M RAD 10:40 | PROVIDERS: ATTEND Physician Assistant | DX: J30.89 Other allergic rhinitis (principal) ==

== ENCOUNTER → 2023-09-30 | Outpatient (CLI) | payer MEDICARE | LOC: M RAD 08:53 | PROVIDERS: ATTEND Physician Assistant | DX: R22.1 Localized swelling, mass and lump, neck (principal) ==

== ENCOUNTER → 2024-08-06 | Outpatient (CLI) | payer MEDICARE | LOC: M CARPUL 12:22 | PROVIDERS: ATTEND Internal Medicine Pulmonary Disease | DX: J45.30 Mild persistent asthma, uncomplicated (principal) ==